=== PATIENT | female | born 1985 | race Hispanic/Latino ===

== ENCOUNTER 2016-07-06 19:17 | Emergency (ER) | payer SELFPAY ==
[2016-07-06 19:24] VITALS: BP 119/73; PULSE 100; RESP 16; TEMP 98.6; O2SAT 100
--- NOTE | 2016-07-06 20:11 | ED PDOC ---
- Laboratory Results Result Diagrams: 07/06/16 20:30 07/06/16 20:30 - ECG O2 Sat by Pulse Oximetry: 100 Medical Decision Making Medical Decision Making: pt medically cleared for evaluation by crisis telephone lineworker deems pt stable for dc under anxiety dr myles Disposition Counseled Patient/Family Regarding: Studies Performed, Diagnosis, Need For Followup - Clinical Impression Clinical Impression: Anxiety - POA Present On Arrival: None - Disposition Disposition: Routine/Home Disposition Time: 21:00 Condition: STABLE Additional Instructions: follow up with your outpatient services as instructed return to the ED with any worsening or concerning symptoms. Instructions: Anxiety (ED) HPI: Psych/Substance Abuse Time Seen by Provider: 07/06/16 19:20 Chief Complaint (Nursing): Anxiety Chief Complaint (Provider): anxiety Additional Complaint(s): 30 yo f who did sheela last week and felt depressed presents feeling anxious and nervous tonight. no suicidal or homicidal ideation. no fever.chills or chest pain. Past Medical History Vital Signs: Last Vital Signs Temp 98.6 F 07/06/16 19:20 Pulse 100 H 07/06/16 19:20 Resp 16 07/06/16 19:20 BP 119/73 07/06/16 19:20 Pulse Ox 100 07/07/16 06:39 - Medical History PMH: No Chronic Diseases - Surgical History Surgical History: No Surg Hx - Family History Family History: States: No Known Family Hx - Social History Current smoker - smoking cessation education provided: Yes (few cigs) Alcohol: Occasional Drugs: Cannabis, Methamphetamine (sheela ) - Home Medications Home Medications: Ambulatory Orders Medication Instructions Recorded Oralcon-F 1 tab PO DAILY 05/11/13 Naproxen [Naprosyn] 500 mg PO BID PRN #30 tab 10/11/14 - Allergies Allergies/Adverse Reactions: Allergies Allergy/AdvReac Type Severity Reaction Status Date / Time No Known Allergies Allergy Verified 10/11/14 11:01 Review of Symptoms - . Except As Marked, All Systems Reviewed And Found Negative Psych: Positive for: Anxiety Physical Exam - Reviewed Nursing Documentation Reviewed: Yes Vital Signs Reviewed: Yes - Physical Exam Appears: Positive for: Well, Non-toxic, No Acute Distress Head Exam: Positive for: ATRAUMATIC, NORMAL INSPECTION, NORMOCEPHALIC Skin: Positive for: Normal Color, Warm, DRY Cardiovascular/Chest: Positive for: Regular Rate, Rhythm Respiratory: Positive for: CNT, Normal Breath Sounds Gastrointestinal/Abdominal: Positive for: Normal Exam, Bowel Sounds, Soft Extremity: Positive for: Normal ROM Neurologic/Psych: Positive for: Alert, Oriented
--- NOTE | 2016-07-06 20:44 | ED PDOC ---
HPI: Psych/Substance Abuse Time Seen by Provider: 07/06/16 19:39 Chief Complaint (Nursing): Anxiety Chief Complaint (Provider): Anxiety History Per: Patient History/Exam Limitations: no limitations Onset/Duration Of Symptoms: Days (1x) Current Symptoms Are (Timing): Still Present Suicide/Self Injury Attempted (Context): None Modifying Factor(s): Other (sheela (ecstasy)) Associated Symptoms: Anxiety, Depression, Suicidal Thoughts Additional Complaint(s): 30 year old female with no pertinent medical history presents to the ED with complaints of anxiety that started yesterday. She admitted that 5x days ago she took sheela and went drinking with friends. Last night she started feeling anxious and depressed and reports that she has not been eating. She reports that she has been drinking a lot of water and denies having any urinary symptoms or constipation. She reports having suicidal thoughts yesterday, but denies having them currently. She denies having any other symptoms including a fever, vomiting, and a cough. PMD: Non [facility] provider. Past Medical History Reviewed: Historical Data, Nursing Documentation, Vital Signs Vital Signs: Last Vital Signs Temp 98.6 F 07/06/16 19:20 Pulse 100 H 07/06/16 19:20 Resp 16 07/06/16 19:20 BP 119/73 07/06/16 19:20 Pulse Ox 100 07/06/16 20:41 - Medical History PMH: No Chronic Diseases - Surgical History Surgical History: No Surg Hx - Family History Family History: States: Unknown Family Hx - Social History Current smoker - smoking cessation education provided: No Alcohol: Social Drugs: Other (sheela (ecstasy)) - Immunization History Hx Tetanus Toxoid Vaccination: No Hx Influenza Vaccination: No Hx Pneumococcal Vaccination: No - Home Medications Home Medications: Ambulatory Orders Medication Instructions Recorded Oralcon-F 1 tab PO DAILY 05/11/13 Naproxen [Naprosyn] 500 mg PO BID PRN #30 tab 10/11/14 - Allergies Allergies/Adverse Reactions: Allergies Allergy/AdvReac Type Severity Reaction Status Date / Time No Known Allergies Allergy Verified 10/11/14 11:01 Review of Systems ROS Statement: Except As Marked, All Systems Reviewed And Found Negative Constitutional: Negative for: Fever Respiratory: Negative for: Cough Gastrointestinal: Negative for: Vomiting Psych: Positive for: Anxiety, Depression, Suicidal ideation Physical Exam - Reviewed Nursing Documentation Reviewed: Yes Vital Signs Reviewed: Yes - Physical Exam Appears: Positive for: Well, Non-toxic, No Acute Distress Head Exam: Positive for: ATRAUMATIC, NORMOCEPHALIC Skin: Positive for: Normal Color, Warm, Dry Neck: Positive for: Normal Cardiovascular/Chest: Positive for: Regular Rate, Rhythm Respiratory: Positive for: Normal Breath Sounds. Negative for: Respiratory Distress Gastrointestinal/Abdominal: Positive for: Normal Exam, Soft. Negative for: Tenderness Neurologic/Psych: Positive for: Alert, Oriented (3x) - Laboratory Results Result Diagrams: 07/06/16 20:30 07/06/16 20:30 - ECG ECG Rhythm: Positive for: Sinus Rhythm (normal sinus rhythm at 89) O2 Sat by Pulse Oximetry: 100 (RA) Pulse Ox Interpretation: Normal Medical Decision Making Medical Decision Makin:39 Initial impression: 30 year old female with anxiety and suicidal thoughts. Initial plan: CMP drug screen urinary troponin I CBC once patient is medically cleared, crisis evaluation as ordered reevaluation 21:35 Patient [address] seen by Dr. Au (psychiatry on-call) and is diagnosed with anxiety upon exam. Patient is stable for discharge. There is agreement for discharge plan. Return if symptoms persist or worsen. Scribe Attestation: Documented by Marine Mtz, acting as a scribe for Sita Bravo MD. Provider Scribe Attestation: All medical record entries made by the Scribe were at my direction and personally dictated by me. I have reviewed the chart and agree that the record accurately reflects my personal performance of the history, physical exam, medical decision making, and the department course for this patient. I have also personally directed, reviewed, and agree with the discharge instructions and disposition. Disposition - Clinical Impression Clinical Impression: Anxiety Discussed With : Jazzy Au - Disposition Disposition: Routine/Home Disposition Time: 21:35 Condition: STABLE Additional Instructions: follow up with your outpatient services as instructed return to the ED with any worsening or concerning symptoms. Instructions: Anxiety (ED)
[2016-07-06 20:45] LABS: BASO # 0.1 K/uL (0.0-0.2); BASO % 0.7 % (0.0-2.0); EOS # 0.1 K/uL (0.0-0.7); EOS % 0.7 % (0.0-4.0); HEMATOCRIT 39.7 % (34.0-47.0); LYMPH # 2.2 K/uL (1.0-4.3); LYMPH % 21.9 % (20.0-40.0); MEAN CELL VOLUME 90.2 fl (81.0-99.0); MEAN CORPUSCULAR HEMOGLOBIN 29.3 pg (27.0-31.0); MEAN CORPUSCULAR HGB CONC 32.5 g/dL (33.0-37.0); MEAN PLATELET VOLUME 9.5 fl (7.2-11.7); MONO # 0.7 K/uL (0.0-0.8); NEUT # 7.1 K/uL (1.8-7.0); NEUT % 69.7 % (50.0-75.0); RED CELL DISTRIBUTION WIDTH 13.2 % (11.5-14.5); WHITE BLOOD COUNT 10.2 K/uL (4.8-10.8)
[2016-07-06 20:50] LABS: ALB/GLOB RATIO 1.3 (1.0-2.1); ALKALINE PHOSPHATASE 45 U/L (38-126); ALT/SGPT 26 U/L (9-52); AST/SGOT 45 U/L (14-36); BILIRUBIN,TOTAL 0.9 mg/dl (0.2-1.3); BLOOD UREA NITROGEN 14 mg/dl (7-17); CALCIUM 8.9 mg/dL (8.4-10.2); CARBON DIOXIDE 25 mmol/L (22-30); CHLORIDE 103 mmol/L (98-107); GFR AFRICAN-AMERICAN > 60; GLUCOSE,RANDOM 92 mg/dL (65-105); POTASSIUM 4.8 MMOL/L (3.6-5.0); SODIUM 138 mmol/l (132-148); TOTAL PROTEIN 7.7 G/DL (6.3-8.2)
[2016-07-06 21:41] LABS: RBC URINE < 1 /hpf (0-3); URINE BILIRUBIN NEGATIVE (NEGATIVE); URINE BLOOD NEGATIVE (NEGATIVE); URINE COLOR COLORLESS (YELLOW); URINE GLUCOSE (UA) NEG (Normal); URINE KETONE TRACE mg/dL (NEGATIVE); URINE LEUKOCYTE ESTERASE NEG Leu/uL (Negative); URINE PROTEIN NEGATIVE (NEGATIVE); URINE UROBILINOGEN 0.2-1.0 mg/dL (0.2-1.0); WBC URINE < 1 /hpf (0-5)
== END 2016-07-06 22:11 | disposition home or self-care (01) ==
LOC: H.ER 19:17
DX: F41.9 Anxiety disorder, unspecified (principal); F17.200 Nicotine dependence, unspecified, uncomplicated; R45.851 Suicidal ideations
CPT/HCPCS: 80053; 81003; 84484; 85025; 87086; 99283; G0480